=== PATIENT | male | born 2000 | race Caucasian/White ===

== ENCOUNTER 2024-09-16 06:49 | Emergency (ER) | payer SELFPAY ==
[~2024-09-16] VITALS: Ht 162.6 cm; Wt 82.0 kg
[2024-09-16 06:52] VITALS: O2SAT 100
[2024-09-16] MEDS: ACETAMINOPHEN 325MG TABLET PO ONE (07:14)
[2024-09-16 09:33] VITALS: BP 112/54; PULSE 74; RESP 18; TEMP 36.7; O2SAT 100
== END 2024-09-16 09:37 | disposition home or self-care (01) ==
LOC: ER 06:49
DX: S09.90XA Unspecified injury of head, initial encounter (principal); M79.605 Pain in left leg; M54.9 Dorsalgia, unspecified; X58.XXXA Exposure to other specified factors, initial encounter; Y93.89 Activity, other specified; Y92.89 Other specified places as the place of occurrence of the external cause; Y99.8 Other external cause status
CPT/HCPCS: 73552; 99284; A4606